=== PATIENT | female | born 1980 | race African-American/Black ===

== ENCOUNTER 2016-07-15 19:18 | Emergency (ER) | payer OTHER ==
[~2016-07-15] VITALS: Ht 152.4 cm; Wt 62.9 kg
[~2016-07-15 19:18] MED LIST: AMPHETAMINE SAL20 MG PO; CELEXA10 MG PO; CITALOPRAM HBR10 MG PO; CYMBALTA30 MG PO; DELTASONE20 M1 PO; ENDOCET 7.5-321 EACH PO; HYDROCODON-ACE1 EAC7 PO; KLONOPIN0.5 M1 PO
[2016-07-15 20:12] LABS: ADD MIUA? NO; BILIRUBIN NEGATIVE; BLOOD NEGATIVE; COLOR YELLOW ((YELLOW)); GLUCOSE (STRIP) NEGATIVE; KETONES NEGATIVE; LEUKOCYTES NEGATIVE; NITRITE NEGATIVE; PROTEIN (STRIP) NEGATIVE; SPECIFIC GRAVITY 1.008 (1.000-1.030); UCUL ADDED? NO; UROBILINOGEN 0.2 MG/DL (0.2-1.0)
[2016-07-15] MEDS ORDERED: PERCOCET 5/31 TABLET PO (20:30)
[2016-07-15 21:19] VITALS: BP 141/87
== END 2016-07-15 21:27 | disposition home or self-care (01) ==
LOC: EME 19:18
PROVIDERS: Emergency Medicine
DX: R51 Headache (principal); Z87.442 Personal history of urinary calculi; F17.200 Nicotine dependence, unspecified, uncomplicated
CPT/HCPCS: 81003; 87651 90; 99281; 99285; J1100; J1885; J2765; J7030